=== PATIENT | female | born 1980 | race Caucasian/White ===

== ENCOUNTER 2019-08-19 09:16 | Emergency (ER) | payer OTHER, SELFPAY ==
[2019-08-19] MEDS ORDERED: LIDOCAINE 1% MPF 5 ML VIAL ONE ×2 (10:25)
[2019-08-19] MEDS ORDERED: SMZ./TMP. 800/160 MG TABLET ONE (10:25)
--- NOTE | 2019-08-19 10:56 | EDPHYS ---
Physician Documentation [facility] Name: Cecily Bettencourt Age: 39 yrs Sex: Female : 1980 Arrival Date: 08/19/2019 Time: 09:21 Bed 17 Private MD: ED Physician Bob Sutherland HPI: 08/18 10:04 This 39 yrs old Female presents to ER via Ambulatory with complaints of kb Breast Problem. 10:04 The patient presents with an abscess of the left breast. Description: erythematous, kb fluctuant, hot, swollen. Onset: The symptoms/episode began/occurred 3 day(s) ago. Possible cause(s): unknown. Associated signs and symptoms: Pertinent positives: erythema, swelling, Pertinent negatives: discharge, drainage, foreign body sensation, fever, headache, nausea, shortness of breath, vomiting. Modifying factors: the symptoms are alleviated by nothing, the symptoms are aggravated by pressure, squeezing the lesion and expressing the contents, touching. Severity of symptoms: At their worst the symptoms were moderate, in the emergency department the symptoms are unchanged. The patient has not experienced similar symptoms in the past. The patient has not recently seen a physician. Pt reports red spot that started on left breast 3 days ago that has gotten bigger and more painful. 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 - Social history:: Smoking status: Patient reports the use of cigarette tobacco products, smokes one-half pack cigarettes per day. ROS: 10:00 Constitutional: Negative for fever, chills, and weight loss, Neck: Negative for injury, kb pain, and swelling, Cardiovascular: Negative for chest pain, palpitations, and edema, Respiratory: Negative for shortness of breath, cough, wheezing, and pleuritic chest pain, Abdomen/GI: Negative for abdominal pain, nausea, vomiting, diarrhea, and constipation, Back: Negative for injury and pain, MS/Extremity: Negative for injury and deformity, Neuro: Negative for headache, weakness, numbness, tingling, and seizure. 10:00 Skin: Positive for abscess, cellulitis, erythema, of the left breast. Exam: 10:00 Constitutional: This is a well developed, well nourished patient who is awake, alert, kb and in no acute distress. Head/Face: Normocephalic, atraumatic. Neck: Trachea midline, no thyromegaly or masses palpated, and no cervical lymphadenopathy. Supple, full range of motion without nuchal rigidity, or vertebral point tenderness. No Meningismus. Chest/axilla: Normal chest wall appearance and motion. Nontender with no deformity. No lesions are appreciated. Cardiovascular: Regular rate and rhythm with a normal S1 and S2. No gallops, murmurs, or rubs. Normal PMI, no JVD. No pulse deficits. Respiratory: Lungs have equal breath sounds bilaterally, clear to auscultation and percussion. No rales, rhonchi or wheezes noted. No increased work of breathing, no retractions or nasal flaring. Abdomen/GI: Soft, non-tender, with normal bowel sounds. No distension or tympany. No guarding or rebound. No evidence of tenderness throughout. MS/ Extremity: Pulses equal, no cyanosis. Neurovascular intact. Full, normal range of motion. Neuro: Awake and alert, GCS 15, oriented to person, place, time, and situation. Cranial nerves II-XII grossly intact. Motor strength 5/5 in all extremities. Sensory grossly intact. Cerebellar exam normal. Normal gait. 10:00 Skin: abscess, that is moderate sized, of the left breast, with fluctuance, with surrounding cellulitis, that is moderate, abscess to 3 o'clock. Vital Signs: 09:44 Temp 97.; Weight 124.74 kg; Height 5 ft. 9 in. (175.26 cm); iw 09:44 BP 132 / 88; Pulse 82; Temp 97.8; Pain 10/10; iw 09:44 Body Mass Index 40.61 (124.74 kg, 175.26 cm) iw Procedures: 10:53 I \T\ D: Incision and drainage was performed for an abscess of the left left breast kb Prepped with Betadine, Anesthetized with 1.5 ml's 1% Lidocaine. Incised with #11 blade. Drained moderate amount purulent fluid. Packed with iodoform gauze, Dressing: sterile 4x4 gauze, the patient tolerated the procedure well. MDM: 09:48 Patient medically screened. kb 10:00 Data reviewed: vital signs, nurses notes. Data interpreted: Pulse oximetry: on room air kb is 100 %. Interpretation: normal. 10:53 Counseling: I had a detailed discussion with the patient and/or guardian regarding: the kb historical points, exam findings, and any diagnostic results supporting the discharge/admit diagnosis, the need for outpatient follow up, a general surgeon, to return to the emergency department if symptoms worsen or persist or if there are any questions or concerns that arise at home. 08/18 10:00 Order name: I\T\D Setup; Complete Time: 10:31 kb Administered Medications: 10:27 Drug: Bactrim (160 mg-800 mg (DS) 1 tablet Route: PO; em 10:54 Follow up: Response: No adverse reaction em 10:44 Drug: Lidocaine (1 %) 1 vials {Note: administered by EVANGELINA Beltran.} Volume: 5 ml; Route: em Infiltration; Site: affected area; Disposition: 18:24 Co-signature as Attending Physician, Bob Sutherland MD Signature for administrative ps1 purposes. Did not see or evaluate patient. . Disposition: 08/19/19 10:55 Discharged to Home. Impression: Cutaneous abscess of chest wall - left breast. - Condition is Stable. - Discharge Instructions: Skin Abscess, [id number]. - Prescriptions for Bactrim DS 800- 160 mg Oral Tablet - take 1 tablet by ORAL route every 12 hours for 10 days; 20 tablet. - Medication Reconciliation Form, Thank You Letter, Antibiotic Education, Prescription Opioid Use, Work release form form. - Follow up: Emergency Department; When: As needed; Reason: Worsening of condition. Follow up: Private Physician; When: 2 - 3 days; Reason: Recheck today's complaints, Continuance of care, Re-evaluation by your physician. Signatures: Ruby Madera FNP-C FNP-Addy Fritz RN RN em Williams, Irene, RN RN iw Singer, Phillip, MD MD ps1 Corrections: (The following items were deleted from the chart) 11:22 10:55 08/19/2019 10:55 Discharged to Home. Impression: Cutaneous abscess of chest wall em - left breast. Condition is Stable. Forms are Medication Reconciliation Form, Thank You Letter, Antibiotic Education, Prescription Opioid Use. Follow up: Emergency Department; When: As needed; Reason: Worsening of condition. Follow up: Private Physician; When: 2 - 3 days; Reason: Recheck today's complaints, Continuance of care, Re-evaluation by your physician. kb
--- NOTE | 2019-08-19 10:56 | ER ---
Nurse's Notes [facility] Name: Cecily Bettencourt Age: 39 yrs Sex: Female : 1980 Arrival Date: 08/19/2019 Time: 09:21 Bed 17 Private MD: Diagnosis: Cutaneous abscess of chest wall-left breast Presentation: 08/18 09:44 Chief complaint: Patient states: abscess to left breast X 4 -5 days, not draining. iw Coronavirus screen: The patient has NOT traveled to a country currently being monitored by the [facility] within the last 14 days. Proceed with normal triage procedures. The patient has NOT had contact with any known and/or suspected case of coronavirus. Proceed with normal triage procedures. Ebola Screen: Patient negative for fever greater than or equal to 101.5 degrees Fahrenheit, and additional compatible Ebola Virus Disease symptoms Patient denies exposure to infectious person. Patient denies travel to an Ebola-affected area in the 21 days before illness onset. No symptoms or risks identified at this time. Initial Sepsis Screen: Does the patient meet any 2 criteria? No. Patient's initial sepsis screen is negative. Does the patient have a suspected source of infection? No. Patient's initial sepsis screen is negative. Risk Assessment: Do you want to hurt yourself or someone else? Patient reports no desire to harm self or others. 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 - Social history:: Smoking status: Patient reports the use of cigarette tobacco products, smokes one-half pack cigarettes per day. Screenin:25 Abuse screen: Denies threats or abuse. Nutritional screening: No deficits noted. em Tuberculosis screening: No symptoms or risk factors identified. Fall Risk None identified. Assessment: 10:25 General: Appears in no apparent distress. uncomfortable, Behavior is calm, cooperative, em appropriate for age, Denies fever. Pain: Complains of pain in left breast Pain currently is 10 out of 10 on a pain scale. Neuro: Level of Consciousness is awake, alert, obeys commands, Oriented to person, place, time, situation, Appropriate for age. Cardiovascular: Capillary refill < 3 seconds Patient's skin is warm and dry. Respiratory: Airway is patent Respiratory effort is even, unlabored, Respiratory pattern is regular, symmetrical. Derm: Reports reports redness and tenderness to left breast, reports abscess mostly on the left side of breast. Vital Signs: 09:44 Temp 97.; Weight 124.74 kg; Height 5 ft. 9 in. (175.26 cm); iw 09:44 BP 132 / 88; Pulse 82; Temp 97.8; Pain 10/10; iw 09:44 Body Mass Index 40.61 (124.74 kg, 175.26 cm) iw ED Course: 09:21 Patient arrived in ED. mr 09:46 Arm band placed on. iw 09:47 Triage completed. iw 09:48 Ruby Madera [facility]C [facility]. kb 09:48 Bob Sutherland MD is Attending Physician. kb 10:02 Addy Guadarrama, RN is Primary Nurse. em 10:25 Patient has correct armband on for positive identification. Bed in low position. em 10:50 Assist provider with I \T\ D: of an abscess on left breast Set up I\T\D tray. Performed by westley Guadarrama cupola hoist operator packed. iodoform gauze, Dressing with 4X4s, tape Patient tolerated well. 11:21 Patient did not have IV access during this emergency room visit. em Administered Medications: 10:27 Drug: Bactrim (160 mg-800 mg (DS) 1 tablet Route: PO; em 10:54 Follow up: Response: No adverse reaction em 10:44 Drug: Lidocaine (1 %) 1 vials {Note: administered by NP. Ruby} Volume: 5 ml; Route: em Infiltration; Site: affected area; Outcome: 10:55 Discharge ordered by . kb 11:22 Discharged to home ambulatory. em 11:22 Condition: good 11:22 Discharge instructions given to patient, Instructed on discharge instructions, follow up and referral plans. medication usage, wound care, Demonstrated understanding of instructions, follow-up care, medications, wound care, Prescriptions given X 1. 11:22 Patient left the ED. em Signatures: Ruby Madera FNP-C [employer] Matt Desiree mr Addy Guadarrama, RN RN em Jacquie Encinas RN RN iw Corrections: (The following items were deleted from the chart) 10:54 10:44 Lidocaine (1 %) 1 vials 5 ml Infiltration 5 ml em em
[2019-08-19 11:32] VITALS: BP 132/88; TEMP 97.8
== END 2019-08-19 11:22 | disposition home or self-care (01) ==
LOC: ER 09:16
PROC: 0J960ZZ Drainage of Chest Subcutaneous Tissue and Fascia, Open Approach (ICD-10-PCS; principal; 2019-08-19)
DX: N61.1 Abscess of the breast and nipple (principal)
CPT/HCPCS: 99283